=== PATIENT | female | born 1995 | race African-American/Black ===

== ENCOUNTER 2019-02-23 15:57 | Inpatient (IN) ==
[2019-02-23] MEDS ORDERED: DINOPROSTONE 10 MG VAG.INSERT VAG ONE (16:49)
[2019-02-23] MEDS ORDERED: ONDANSETRON 4 MG/2 ML VIAL IV PRN (16:49)
[2019-02-23] MEDS ORDERED: MEPERIDINE 25 MG/1 ML VIAL IV PRN (16:49)
[2019-02-23 17:21] LABS: Apearance,Urine Slightly Hazy (Clear); Bacteria,Urine Few /HPF (Few); Bilirubin,Urine Negative (Negative); Blood, Urine Negative (Negative); Glucose,Urine (UA) Negative (Negative); Ketones,Urine Negative (Negative); Mucus,Urine Many /LPF (Occasional); Nitrite,Urine Negative (Negative); Protein,Urine Negative; RBC,Urine <1 /HPF (0-4); Squamous Epithelial Cell,Urine Occasional /HPF (0-10); Urine Color Yellow (Yellow); Urine Urobilinogen < 2.0 EU/DL (0.2-1.0); WBC,Urine 4 /HPF (0-6)
[2019-02-23 17:25] LABS: Basophils % 0.1 % (0.0-0.8); Eosinophils % 0.6 % (0.00-10.9); Hematocrit 24.8 VOL% (35.7-47.0); Hemoglobin 7.4 GM/DL (12.0-16.0); Immature Granulocytes % 0.4 %; Immature Granulocytes Absolute 0.03 #; Lymphocytes # 1.5 10*3/uL (1.4-4.0); Lymphocytes % 21.9 % (21.3-54.2); Mean Corpuscular HGB Conc 29.8 GM/DL (32-36); Mean Corpuscular Volume 72.1 FL (87-102); Mean Platelet Volume 8.9 FL (9.6-12.0); Monocytes % 10.2 % (1.7-12.7); Neutrophils % 66.8 % (38.7-73.9); Platelet Count 263 T/CUMM (130-400); Red Blood Count 3.44 MC/CUMM (3.8-5.5); Red Cell Distribution Width 17.7 % (9.3-17.3); White Blood Count 6.9 T/CUMM (4-12)
[2019-02-23 17:56] LABS: Albumin 2.5 G/DL (3.4-5.0); Bilirubin,Total 0.5 MG/DL (0.2-1.0); Calcium 8.2 MG/DL (8.5-10.1); Osmolality,Calculated 276.3 MOS/KG (273-304); Total Protein 6.3 G/DL (6.4-8.3)
[2019-02-23] MEDS ORDERED: BUTORPHANOL 1 MG/ML VIAL IV PRN (22:38)
[2019-02-24] MEDS: LACTATED RINGERS 1,000 ML IV SCH ×3 (05:55→20:01)
[2019-02-24] MEDS ORDERED: OXYTOCIN/LR 20 UNIT/1,000 ML BAG IV SCH (06:00)
[2019-02-24] MEDS ORDERED: PENICILLIN G POTASSIUM INJ 6,000,000 UNIT in SODIUM CHLORIDE 0.9% 100 ML IV ONE (06:00)
[2019-02-24] MEDS ORDERED: ePHEDrine 50 MG/ML AMP IV PRN (09:23)
[2019-02-24] MEDS ORDERED: CITRIC ACID/SODIUM CITRATE 30 ML UDCUP PO ONE (09:23)
[2019-02-24] MEDS ORDERED: FAMOTIDINE 20 MG/2 ML VIAL IV ONE (09:23)
[2019-02-24] MEDS ORDERED: LACTATED RINGERS 1,000 ML IV ONE (09:23)
[2019-02-24] MEDS ORDERED: PROMETHAZINE 25 MG/1 ML VIAL IM ONE (09:24)
[2019-02-24] MEDS ORDERED: diphenhydrAMINE 50 MG/1 ML VIAL IV PRN ×2 (09:24)
[2019-02-24] MEDS ORDERED: NALOXONE 0.4 MG/ML VIAL IV PRN (09:24)
[2019-02-24] MEDS ORDERED: hydrOXYzine HCL 25 MG/1 ML VIAL IM PRN (09:24)
[2019-02-24] MEDS ORDERED: fentaNYL 2 MCG/ROPIV 0.2% EPID 100 ML EPIDURAL SCH (09:30)
[2019-02-24] MEDS: PENICILLIN G POTASSIUM INJ 3,000,000 UNIT in SODIUM CHLORIDE 0.9% 100 ML IV SCH ×2 (10:08→18:05)
[2019-02-24] MEDS ORDERED: ceFAZolin 3,000 MG in SYRINGE 1 EACH IV ONE (11:35)
[2019-02-24] MEDS ORDERED: METHYLERGONOVINE 0.2 MG/1 ML AMP ONE (11:39)
[2019-02-24] MEDS ORDERED: CARBOPROST TROMETHAMINE 250 MCG/ML AMP IM ONE (11:39)
[2019-02-24] MEDS ORDERED: miSOPROStol 200 MCG TABLET ONE (11:39)
[2019-02-24] MEDS ORDERED: OXYTOCIN/LR 20 UNIT/1,000 ML BAG IV ONE (11:39)
[2019-02-24] MEDS ORDERED: TRANEXAMIC ACID 1,000 MG/10 ML VIAL ONE (11:39)
[2019-02-24] MEDS ORDERED: PHENYLEPHRINE 1 MG/10 ML SYRINGE IV ONE (11:41)
[2019-02-24] MEDS ORDERED: LIDOCAINE MPF 2% /EPI 20 ML VIAL ONE (11:42)
[2019-02-24] MEDS ORDERED: KETOROLAC 60 MG/2 ML VIAL IM ONE (11:42)
[2019-02-24] MEDS ORDERED: MORPHINE 10 MG/10 ML VIAL ONE (11:42)
[2019-02-24] MEDS ORDERED: SODIUM CHLORIDE 0.9% 100 ML IV ONE (11:45)
[2019-02-24] MEDS ORDERED: OXYTOCIN 10 UNIT/ML VIAL ONE (12:43)
[2019-02-24 12:58] LABS: Cord Arterial Blood HCO3 19.9 MMOL/L
[2019-02-24 12:59] LABS: Cord Venous Blood HCO3 24.1 MMOL/L; Cord Venous Blood PCO2 44.2 MMHG; Cord Venous Blood PO2 39.2 MMHG
[2019-02-24 13:04] LABS: Apearance,Urine CLEAR (Clear); Bilirubin,Urine Negative (Negative); Blood, Urine Negative (Negative); Glucose,Urine (UA) Negative (Negative); Ketones,Urine 5 mg/dL (Negative); Mucus,Urine Few /LPF (Occasional); Nitrite,Urine Negative (Negative); Protein,Urine Negative; Squamous Epithelial Cell,Urine Occasional /HPF (0-10); Urine Color Yellow (Yellow); Urine Specific Gravity 1.028 (1.001-1.035); Urine Urobilinogen < 2.0 EU/DL (0.2-1.0); WBC,Urine 1 /HPF (0-6)
[2019-02-24 13:08] LABS: HIV Antigen/Antibody Result Nonreactive (Nonreactive); Hepatitis B Surface Ag Quant < 0.10 Index; Hepatitis B Surface Ag Result Negative (Negative); Rubella Antibody IgG 45.7 IU/ML
[2019-02-24] MEDS ORDERED: SODIUM CHLORIDE 0.9% 1,000 ML IV PRN (13:35)
[2019-02-24] MEDS ORDERED: PROPOFOL 200 MG/20 ML VIAL IV ONE (13:44)
[2019-02-24] MEDS ORDERED: DEXAMETHASONE 4 MG/1 ML VIAL ONE (13:44)
[2019-02-24] MEDS ORDERED: RHO(D) IMMUNE GLOBULIN 300 MCG SYRINGE IM ONE (17:22)
[2019-02-24] MEDS: ceFAZolin 1,000 MG in SYRINGE 1 EACH IV SCH (20:00)
[2019-02-24] MEDS: KETOROLAC 30 MG/1 ML VIAL IV SCH (20:02)
[2019-02-25] MEDS: KETOROLAC 30 MG/1 ML VIAL IV SCH ×2 (01:26→07:43)
[2019-02-25] MEDS ORDERED: fentaNYL 2 MCG/ROPIV 0.2% EPID 100 ML EPIDURAL ONE (04:11)
[2019-02-25] MEDS: ceFAZolin 1,000 MG in SYRINGE 1 EACH IV SCH (04:16)
[2019-02-25 05:21] LABS: Basophils % 0.2 % (0.0-0.8); Eosinophils % 0.1 % (0.00-10.9); Hematocrit 27.3 VOL% (35.7-47.0); Hemoglobin 8.1 GM/DL (12.0-16.0); Immature Granulocytes % 0.6 %; Immature Granulocytes Absolute 0.06 #; Lymphocytes # 1.8 10*3/uL (1.4-4.0); Lymphocytes % 17.6 % (21.3-54.2); Mean Corpuscular HGB Conc 29.7 GM/DL (32-36); Mean Corpuscular Volume 76.9 FL (87-102); Mean Platelet Volume 9.5 FL (9.6-12.0); Monocytes % 9.6 % (1.7-12.7); Neutrophils % 71.9 % (38.7-73.9); Platelet Count 266 T/CUMM (130-400); Red Blood Count 3.55 MC/CUMM (3.8-5.5); Red Cell Distribution Width 18.8 % (9.3-17.3)
[2019-02-25] MEDS: MULTIVITAMIN (PRENATAL) TABLET PO SCH (08:28)
[2019-02-25] MEDS: DOCUSATE SODIUM 100 MG CAPSULE PO SCH ×2 (08:28→20:45)
[2019-02-25] MEDS: IBUPROFEN 800 MG TABLET PO SCH ×3 (19:05→20:45)
[2019-02-25] MEDS: MAGNESIUM HYDROXIDE SUSP 30 ML UDCUP PO PRN (20:45)
[2019-02-25] MEDS: SIMETHICONE CHEW 80 MG TABLET PO PRN (20:45)
[2019-02-26] MEDS: IBUPROFEN 800 MG TABLET PO SCH ×3 (03:55→20:13)
[2019-02-26] MEDS: MAGNESIUM HYDROXIDE SUSP 30 ML UDCUP PO PRN ×2 (10:02→20:14)
[2019-02-26] MEDS: MULTIVITAMIN (PRENATAL) TABLET PO SCH (10:02)
[2019-02-26] MEDS: DOCUSATE SODIUM 100 MG CAPSULE PO SCH ×2 (10:02→20:13)
[2019-02-26] MEDS: SIMETHICONE CHEW 80 MG TABLET PO PRN ×2 (10:02→20:13)
[2019-02-27] MEDS: IBUPROFEN 800 MG TABLET PO SCH (03:39)
[2019-02-27 08:26] VITALS: BP 127/61
[2019-02-27] MEDS: DOCUSATE SODIUM 100 MG CAPSULE PO SCH (08:52)
[2019-02-27] MEDS: MULTIVITAMIN (PRENATAL) TABLET PO SCH (08:52)
[2019-02-27] MEDS ORDERED: DIPH/TET/ACEL PERT BOOSTER VACCINE 0.5 ML VIAL IM ONE (09:12)
== END 2019-02-27 11:05 | disposition home or self-care (01) | DRG 540 ==
LOC: N.LDOUT 15:57 → N.LD 16:05 → N.OB 02-25 10:33
PROVIDERS: ADMIT Obstetrics & Gynecology; ATTEND Obstetrics & Gynecology
PROC: LDCSECT (ICD-10-PCS; 2019-02-24 11:45)